=== PATIENT | male | born 1955 | race Two or more races ===

== ENCOUNTER 2018-03-29 05:30 | Day surgery (SDC) | payer OTHER ==
[~2018-03-29 05:30] MED LIST: ACID CONTROLLER20 MG PO; AMBIEN10 MG PO; PRAVASTATIN SOD20 MG PO
== END 2018-03-29 17:20 | disposition home or self-care (01) ==
LOC: CIR.AMB 05:30 → AMB-ENDOS 09:30 → CIR.AMB 13:00
DX: K60.1 Chronic anal fissure (principal)